=== PATIENT | female | born 2000 | race Asian ===

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

== ENCOUNTER 2020-09-08 14:00 | Emergency (ER) | payer OTHER | END 2020-09-08 14:51 | disposition home or self-care (01) | LOC: ED 14:00 | DX: J06.9 Acute upper respiratory infection, unspecified (principal); U07.1 COVID-19; F17.290 Nicotine dependence, other tobacco product, uncomplicated | CPT/HCPCS: 87635; 99282; U0003 ==

== ENCOUNTER 2022-02-18 15:22 | Emergency (ER) | payer OTHER ==
[~2022-02-18] VITALS: Ht 162.6 cm; Wt 59.0 kg
[2022-02-18 15:38] VITALS: BP 135/68; TEMP 98.3
[2022-02-18] MEDS ORDERED: 904272561 PO (17:23)
== END 2022-02-18 17:55 | disposition home or self-care (01) ==
LOC: ED 15:22
DX: S50.02XA Contusion of left elbow, initial encounter (principal); L03.114 Cellulitis of left upper limb; S40.212A Abrasion of left shoulder, initial encounter; W01.0XXA Fall on same level from slipping, tripping and stumbling without subsequent striking against object, initial encounter; Y92.89 Other specified places as the place of occurrence of the external cause
CPT/HCPCS: 96372; 99283; J1885